=== PATIENT | male | born 1990 | race Two or more races ===

== ENCOUNTER 2023-08-05 14:11 | Emergency (ER) | payer OTHER ==
[~2023-08-05] VITALS: Ht 170.2 cm; Wt 68.0 kg
[2023-08-05 16:16] VITALS: BP 127/70; TEMP 98.1; O2SAT 99
== END 2023-08-05 16:17 | disposition home or self-care (01) ==
LOC: ER 14:16
DX: S53.402A Unspecified sprain of left elbow, initial encounter (principal); S63.502A Unspecified sprain of left wrist, initial encounter; S80.212A Abrasion, left knee, initial encounter; V19.9XXA Pedal cyclist (driver) (passenger) injured in unspecified traffic accident, initial encounter; Y93.89 Activity, other specified; Y92.488 Other paved roadways as the place of occurrence of the external cause; Y99.8 Other external cause status
CPT/HCPCS: 99284; 73080; 73110; A6403